=== PATIENT | female | born 1950 | race Two or more races ===

== ENCOUNTER 2020-04-12 09:52 | Outpatient (CLI) | payer MEDICARE, OTHER | END 2020-04-12 23:59 | disposition home or self-care (01) | LOC: LAB 09:52 | PROVIDERS: ATTEND Specialist | DX: Z01.812 Encounter for preprocedural laboratory examination (principal); Z20.828 Contact with and (suspected) exposure to other viral communicable diseases | CPT/HCPCS: 87426; C9803; U0003 ==

== ENCOUNTER 2020-04-17 05:23 | Inpatient (IN) | payer MEDICARE, OTHER ==
[2020-04-17] MEDS ORDERED: ANESTHESIA TRAY IN PYXIS 1 EA TRAY MC ONE (06:17)
[2020-04-17] MEDS ORDERED: BACITRACIN 50000 UNITS/VIAL ONE (06:18)
[2020-04-17] MEDS ORDERED: methylPREDNISolone ACETATE 80 MG/ML VIAL ONE (06:18)
[2020-04-17] MEDS ORDERED: FENTANYL PF 100MCG/2ML AMPUL ONE (06:37)
[2020-04-17] MEDS ORDERED: SCOPOLAMINE PATCH 1 MG/72HR TD ONE (06:37)
[2020-04-17] MEDS ORDERED: BUPIVACAINE MPF W/EPI 0.25% 30 ML VIAL ONE (06:37)
[2020-04-17] MEDS ORDERED: DESFLURANE 240 ML BOTTLE IH ONE (06:38)
[2020-04-17] MEDS ORDERED: SEVOFLURANE 250 ML BOTTLE IH ONE (06:38)
[2020-04-17] MEDS ORDERED: TRANEXAMIC ACID 3,000 MG in SODIUM CHLORIDE IRRIG SOLUTION 70 ML IR ONE (07:30)
[2020-04-17] MEDS ORDERED: BUPIVACAINE 0.5 % PF 150 MG/30 ML VIAL ONE (08:10)
[2020-04-17] MEDS ORDERED: HYDROMORPHONE 1 MG/1 ML DISP.SYRIN ONE (08:34)
[2020-04-17] MEDS ORDERED: OXYB15TA19 PO (08:43)
[2020-04-17] MEDS ORDERED: OXYC1TAB12 MT (08:43)
[2020-04-17] MEDS ORDERED: MAG HYDROX/AL HYDROX/SIMETH 30 ML UDC PO PRN (09:30)
[2020-04-17] MEDS ORDERED: ACETAMINOPHEN 325 MG TABLET PO PRN ×2 (09:30→14:30)
[2020-04-17] MEDS ORDERED: HYDROMORPHONE 1 MG/1 ML DISP.SYRIN IV PRN (09:30)
[2020-04-17] MEDS ORDERED: oxyCODONE IR immediate release 5 MG PO PRN ×2 (09:30)
[2020-04-17] MEDS ORDERED: MENTHOL/CETYLPYRD (CEPACOL) 1 LOZ LOZENGE MM PRN (09:30)
[2020-04-17] MEDS ORDERED: diphenhydrAMINE HCL 25 MG CAPSULE PO PRN (09:30)
[2020-04-17] MEDS ORDERED: BISACODYL SUPP (10 MG) 10 MG/SUPP.RECT SUPP.RECT RC PRN ×2 (09:30→09:31)
[2020-04-17] MEDS ORDERED: SENNOSIDES 8.6 MG TABLET PO PRN (09:30)
[2020-04-17] MEDS ORDERED: DOCUSATE SODIUM 250 MG CAPSULE PO PRN (09:30)
[2020-04-17] MEDS ORDERED: ONDANSETRON HCL/PF 4 MG/2 ML VIAL IVP PRN (09:30)
[2020-04-17] MEDS ORDERED: ZOLPIDEM TARTRATE 5 MG TABLET PO PRN (09:30)
[2020-04-17] MEDS ORDERED: MAGNESIUM HYDROXIDE 30 ML UDC PO PRN (09:30)
[2020-04-17] MEDS ORDERED: NALOXONE HCL 0.4 MG/ML AMPUL IV PRN (09:30)
[2020-04-17] MEDS ORDERED: CLONIDINE HCL 0.1 MG TABLET PO PRN (09:30)
[2020-04-17 10:30] VITALS: BP 124/70
[2020-04-17 10:45] VITALS: BP 122/78
[2020-04-17 11:00] VITALS: BP 129/78
--- NOTE | 2020-04-17 11:30 | NUR ---
ms rn received a post op patient from or/recovery, s/p left knee arthroplasty by dr. nickerson, awake,alert,oriented x4,not in any form of distress, respirations even and unlabored,no sob noted,lungs are clear,abdomen soft,positive bowel sounds,denies pain at this time,all needs attended,sx site w/ dressing ,dry and intact,denies pain at this time,all needs attended.
--- NOTE | 2020-04-17 12:30 | NUR ---
ms varun was seen by ayden quick/ orders made and carried out.
[2020-04-17] MEDS: DRONABINOL (2.5 MG) 2.5 MG CAPSULE PO SCH ×2 (13:02→20:02)
--- NOTE | 2020-04-17 14:00 | NUR ---
ms rn was seen by dr. florez for pain meds w/ orders made and carried out.
[2020-04-17] MEDS ORDERED: Z GUARD REMEDY 2 OZ OINT TP PRN (14:30)
[2020-04-17] MEDS: OXYBUTYNIN CHLORIDE ER 5 MG TAB PO SCH (14:46)
[2020-04-17 16:00] VITALS: BP 108/53
--- NOTE | 2020-04-17 16:20 | NUR ---
ms rn cornell leonard for prophylaxis order, and patient cannot take asa, due to gastric issue, promise to order a new one.
[2020-04-17] MEDS: ANCEF 1 GM/50 ML D5W IV SCH ×4 (16:51→22:17)
[2020-04-17] MEDS: IV LR 1000 ML 1,000 ML IV PRN (16:51)
[2020-04-17] MEDS: ASPIRIN 325 MG TABLET PO SCH ×2 (17:00→17:54)
[2020-04-17] MEDS: DOCUSATE SODIUM 100 MG CAPSULE PO SCH (17:54)
--- NOTE | 2020-04-17 19:16 | NUR ---
ms rn on bed,cpm on at this time, tolerated well.
--- NOTE | 2020-04-17 19:30 | NUR ---
RN OPENING NOTES Received patient, awake on bed, resting. No complaints made at this time. Kept on bed clean, dry and comfortable. On fall and aspiration precautions. Will continue to monitor accordingly.
[2020-04-17] MEDS ORDERED: FAMOTIDINE (20 MG) 20 MG TABLET ONE (19:48)
[2020-04-17 20:00] VITALS: BP_SYST 102; BP_SYST 112; BP_DIAS 64
[2020-04-17] MEDS: FAMOTIDINE (20 MG) 20 MG TABLET PO SCH (20:02)
[2020-04-18] MEDS: IV LR 1000 ML 1,000 ML IV PRN (03:46)
--- NOTE | 2020-04-18 03:52 | NUR ---
MS RN NOTE PATIENT IS AWAKE, A & O X 4, ASSESSED THE PATIENT FOR PAIN BUT PATIENT STATED," I DO NOT HAVE ANY PAIN AT THIS TIME." PATIENT REFUSED TO TAKE ANY PAIN MEDICINE WELL. INFORMED THE PATIENT TO LET THE NURSE KNOW IF PAIN MEDICINE NEEDED, PATIENT VERBALIZED UNDERSTANDING. WILL CONTINUE TO MONITOR.
--- NOTE | 2020-04-18 04:00 | NUR ---
MS RN NOTE INCENTIVE SPIROMETER PROVIDED TO THE PATIENT WITH INSTRUCTIONS HOW TO USE IT, PATIENT VERBALIZED UNDERSTANDING.
--- NOTE | 2020-04-18 05:14 | NUR ---
MS RN NOTE PER DR. OLIVER, PATIENT NEEDS TO TAKE ASPIRIN ORDERED. IF PATIENT REFUSES, NEED TO ENCOURAGE & EXPLAIN TO THE PATIENT THAT ASPIRIN IS ORDERED TO PREVENT A DVT POST OP. WILL ENDORSE TO AM RN.
[2020-04-18 07:00] LABS: CALCIUM, SERUM 8.7 mg/dL (8.5-10.1); CREATININE 0.6 mg/dL (0.6-1.3); MAGNESIUM 2.2 mg/dL (1.8-2.4); PHOSPHORUS 3.5 mg/dL (2.5-4.9); POTASSIUM 3.8 mmol/L (3.5-5.1)
[2020-04-18 07:02] LABS: BASOPHILS % (AUTO) 0.3 % (0.0-2.0); EOSINOPHILS % (AUTO) 0.4 % (0.0-6.0); HEMATOCRIT 36 % (33-45); HEMOGLOBIN 12.1 g/dL (11.5-14.8); LYMPHOCYTES # (AUTO) 1.5 /CMM (0.8-4.8); LYMPHOCYTES % (AUTO) 15.6 % (20.0-44.0); MEAN CORPUSCULAR HGB CONC 33 g/dl (31.0-36.0); MEAN CORPUSCULAR VOLUME 87 fL (82-100); NEUTROPHILS # (AUTO) 7.3 /CMM (1.8-8.9); NEUTROPHILS % (AUTO) 73.7 % (43.0-81.0); PLATELET COUNT (AUTO) 201 /CMM (150-450); RED BLOOD CELL COUNT(AUTO) 4.17 MIL/uL (4.0-5.2); WHITE BLOOD COUNT (AUTO) 9.9 K/uL (4.3-11.0)
--- NOTE | 2020-04-18 07:45 | NUR ---
MS RN NOTE NO ACUTE CHANGES NOTED THROUGH OUT THE SHIFT. PATIENT IN STABLE CONDITION. ENDORSED TO AM RN FOR CONTINUITY OF CARE.
[2020-04-18 08:00] VITALS: BP 132/85
[2020-04-18] MEDS: DOCUSATE SODIUM 100 MG CAPSULE PO SCH (08:24)
[2020-04-18] MEDS: ASPIRIN 325 MG TABLET PO SCH (08:25)
[2020-04-18] MEDS: OXYBUTYNIN CHLORIDE ER 5 MG TAB PO SCH (08:25)
[2020-04-18] MEDS: DRONABINOL (2.5 MG) 2.5 MG CAPSULE PO SCH (08:25)
[2020-04-18] MEDS ORDERED: APIX2.5T PO (11:22)
[2020-04-18] MEDS: FAMOTIDINE (20 MG) 20 MG TABLET PO SCH (11:40)
--- NOTE | 2020-04-18 15:34 | NUR ---
CABLE TOOL OPERATOR NOTE Patient has been medically cleared for discharge by CABIN CLEANING SUPERVISOR and Dr. Stevens. Patient DC to home with walker. Surgical dressing changed, ISMA bandage appled. Patient refused photos. DC instructions provided and patient verbalized understanding. All belongings are with the patient. Patient brought down by wheelchair at 1518. Picked up by daughter en route to home. Addendum: 04/18/20 at 1619 by ARON CAMPBELL RN IV REMOVED AND ID BAND REMOVED.
== END 2020-04-18 15:54 | disposition home health service (06) | DRG 470 ==
LOC: DS 05:23 → MED 08:35
PROVIDERS: ADMIT Nurse Practitioner Acute Care; ATTEND Nurse Practitioner Acute Care
PROC: 0SRD0J9 Replacement of Left Knee Joint with Synthetic Substitute, Cemented, Open Approach (ICD-10-PCS; principal; 2020-04-17)
DX: M17.12 Unilateral primary osteoarthritis, left knee (principal); D68.59 Other primary thrombophilia; Z85.028 Personal history of other malignant neoplasm of stomach; Z74.09 Other reduced mobility; Z92.21 Personal history of antineoplastic chemotherapy; Z85.72 Personal history of non-Hodgkin lymphomas; E66.9 Obesity, unspecified; Z98.1 Arthrodesis status; G47.00 Insomnia, unspecified
CPT/HCPCS: 36415; 80048-TC; 80061-TC; 83735-TC; 84100-TC; 85025-TC; 86850-TC; 88305-TC; 88311-TC; 97112-TC; 97116-TC; 97530-TC; 97760-TC; A4217; A6253; C1713; C1776; G0378; J0690; J1040; J1100; J1170; J1885; J2001; J2405; J2704; J3010; J3490; J7060; J7120; Q0167